=== PATIENT | male | born 1990 | race Caucasian/White ===

== ENCOUNTER 2018-04-09 17:04 | Emergency (ER) | payer OTHER ==
[~2018-04-09] VITALS: Ht 180.3 cm; Wt 59.0 kg
[2018-04-09 17:06] VITALS: BP 119/71
== END 2018-04-09 18:06 | disposition home or self-care (01) ==
LOC: ED 18:00
DX: J01.90 Acute sinusitis, unspecified (principal); J00 Acute nasopharyngitis [common cold]
CPT/HCPCS: 71046; 99284

== ENCOUNTER 2018-12-10 16:19 | Emergency (ER) | payer OTHER ==
[~2018-12-10] VITALS: Ht 180.3 cm; Wt 61.9 kg
--- NOTE | 2018-12-10 16:42 | NUR ---
FIRST CONTACT WITH PT. PT REPORTS SOME LS FLANK/CHEST/ABD PAIN THAT BEGAN LAST NIGHT WHILE HE WAS AT WORK. PT RATES HIS PAIN A 5/10. 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
[2018-12-10] MEDS ORDERED: MAALOX/HYOSCYAMINE/LIDOCAINE 45 ML BTL ONE (16:54)
--- NOTE | 2018-12-10 16:58 | NUR ---
PT MEDICATED WITH GI COCKTAIL. NAD. FAMILY AT BEDSIDE.
[2018-12-10] MEDS ORDERED: MAALOX/HYOSCYAMINE/LIDOCAINE 45 ML BTL PO ONE (17:00)
[2018-12-10 17:08] LABS: BASOPHILS # (AUTO) 0.03 x10^3/uL (0-0.1); BASOPHILS % (AUTO) 0 % (0-1); EOSINOPHILS # (AUTO) 0.07 x10^3/uL (0-0.4); EOSINOPHILS % (AUTO) 1 % (1-7); LYMPHOCYTES # (AUTO) 1.97 x10^3/uL (1-3.4); LYMPHOCYTES % (AUTO) 22 % (22-44); MD NO; MEAN CORPUSCULAR HEMOGLOBIN 31.1 pg (27.5-34.5); MEAN CORPUSCULAR HGB CONC 33.6 g/dL (33.2-36.2); MEAN CORPUSCULAR VOLUME 92.5 fL (81-97); MEAN PLATELET VOLUME 8.1 fL (7.4-10.4); MONOCYTES # (AUTO) 0.62 x10^3/uL (0.2-0.8); MONOCYTES % (AUTO) 7 % (2-9); NEUTROPHILS # (AUTO) 6.35 x10^3/uL (1.8-6.8); NEUTROPHILS % (AUTO) 70 % (42-75); PLATELET COUNT 255 x10^3/uL (130-400); RED BLOOD COUNT 5.06 x10^6/uL (4.38-5.82); RED CELL DISTRIBUTION WIDTH 13.5 % (9.4-14.8)
[2018-12-10 17:15] LABS: ALANINE AMINOTRANSFERASE 60 U/L (12-78); ALBUMIN 3.6 g/dL (3.4-5.0); ANION GAP 9 mmol/L (5-15); CALCIUM 8.8 mg/dL (8.5-10.1); CHLORIDE 110 mmol/L (98-107)
[2018-12-10 17:19] LABS: ALKALINE PHOSPHATASE 97 U/L (45-117); BILIRUBIN,TOTAL 0.9 mg/dL (0.2-1.0); TOTAL PROTEIN 6.7 g/dL (6.4-8.2); TROPONIN I < 0.015 ng/mL (0.000-0.045)
[2018-12-10] MEDS ORDERED: OXYcodone/APAP 5/325MG TABLET PO ONE (17:30)
[2018-12-10] MEDS ORDERED: OXYcodone/APAP 5/325MG TABLET ONE (17:44)
--- NOTE | 2018-12-10 17:48 | NUR ---
PT MEDICATED FOR PAIN. VSS. NAD. PT REPORTS HIS PAIN DID NOT GET BETTER AFTER GI COCKTAIL - MD NOTIFIED. WILL MONITOR CLOSELY.
[2018-12-10 18:05] VITALS: BP 118/72
--- NOTE | 2018-12-10 18:06 | NUR ---
PT REPORTS HIS PAIN IS A 1/10 AND HE FEELS MUCH BETTER. LIV IS PLANNING DC, PT INFORMED, PT VERBALIZED UNDERSTANDING OF POC. DANNA. YESI.
--- NOTE | 2018-12-10 18:21 | NUR ---
Patient/Caregiver given discharge instructions and they have confirmed that they understand the instructions. Patient ambulatory with steady gait. Prescription given to pt, education reviewed, pt verbalized understanding.
== END 2018-12-10 18:24 | disposition home or self-care (01) ==
LOC: ED 18:18
DX: R10.13 Epigastric pain (principal)
CPT/HCPCS: 36415; 71046; 74021; 80053; 84484; 85025; 93005; 99284

== ENCOUNTER 2019-04-01 07:15 | Emergency (ER) | payer OTHER ==
[~2019-04-01] VITALS: Ht 180.3 cm; Wt 61.1 kg
--- NOTE | 2019-04-01 07:25 | NUR ---
PT AMBULATORY WITH STEADY GAIT FROM TRIAGE TO ROOM. CHANGING INTO GOWN NOW.
[2019-04-01] MEDS ORDERED: KETOROLAC 30 MG/1 ML IM ONE (07:30)
--- NOTE | 2019-04-01 07:34 | NUR ---
PT HERE TODAY FOR PAIN IN LEFT EAR AND A HEADACHE. STATES HE WOKE UP WITH THE CHRISTINE AND EAR PAIN STARTED A FEW DAYS AGO. DENIES TRAUMA, DENIES LOC. STATES PAIN IS 10/10 IN EAR AND HEAD RIGHT NOW. STATES HE HAD A "BUMP" ON LEFT EAR LOBE THAT HAS NOW RESOLVED. RESTING ON GURNEY. OFFERED BLANKET, REFUSED. NADN. CONNECTED TO MONITOR. VSS. DENIES NEEDS. CALL [facility]IM[facility] IN REACH.
--- NOTE | 2019-04-01 07:40 | NUR ---
PA AT BEDSIDE ASSESSING PT NOW.
--- NOTE | 2019-04-01 07:40 | NUR ---
PT DENIES HEARING LOSS. STATES HE HAS NOT BEEN SICK RECENTLY. STATES HE USES QTIPS EVERY OTHER DAY.
[2019-04-01 07:41] VITALS: BP 121/76
[2019-04-01] MEDS ORDERED: KETOROLAC 30 MG/1 ML ONE (07:43)
--- NOTE | 2019-04-01 07:45 | NUR ---
PT MEDICATED PER EMAR. RESTING ON GURNEY. VSS. NADN. AWARE OF POC.
== END 2019-04-01 08:02 | disposition home or self-care (01) ==
LOC: ED 07:48
DX: H60.502 Unspecified acute noninfective otitis externa, left ear (principal)
CPT/HCPCS: 99283

== ENCOUNTER 2019-10-30 09:35 | Emergency (ER) | payer OTHER ==
[~2019-10-30] VITALS: Ht 180.3 cm; Wt 62.7 kg
[2019-10-30] MEDS ORDERED: FAMOTIDINE 20 MG/2 ML IV ONE (10:00)
[2019-10-30] MEDS ORDERED: SODIUM CHLORIDE 0.9% 1,000ML IVBOLUS ONE (10:00)
[2019-10-30] MEDS ORDERED: ONDANSETRON 2MG/ML, 2ML IVPush ONE (10:00)
[2019-10-30] MEDS ORDERED: ONDANSETRON 2MG/ML, 2ML ONE (10:02)
[2019-10-30] MEDS ORDERED: MORPHINE SULFATE 4 MG/ML, 1ML ONE ×2 (10:02→11:23)
[2019-10-30] MEDS ORDERED: FAMOTIDINE 20 MG/2 ML ONE (10:03)
--- NOTE | 2019-10-30 10:07 | NUR ---
piv placed from which labs were drawn Medicated per daina for umbilical abd pain at 7/10 vss on nibp/pox Updated on estimated poc
[2019-10-30] MEDS: MORPHINE SULFATE 4 MG/ML, 1ML IVPush PRN ×2 (10:09→11:37)
[2019-10-30 10:27] LABS: BASOPHILS # (AUTO) 0.02 x10^3/uL (0-0.1); BASOPHILS % (AUTO) 0 % (0-1); EOSINOPHILS # (AUTO) 0.07 x10^3/uL (0-0.4); EOSINOPHILS % (AUTO) 1 % (1-7); LYMPHOCYTES # (AUTO) 2.89 x10^3/uL (1-3.4); LYMPHOCYTES % (AUTO) 29 % (22-44); MD NO; MEAN CORPUSCULAR HEMOGLOBIN 31.3 pg (27.5-34.5); MEAN CORPUSCULAR HGB CONC 34.2 g/dL (33.2-36.2); MEAN CORPUSCULAR VOLUME 91.6 fL (81-97); MEAN PLATELET VOLUME 8.2 fL (7.4-10.4); MONOCYTES # (AUTO) 0.55 x10^3/uL (0.2-0.8); MONOCYTES % (AUTO) 6 % (2-9); NEUTROPHILS # (AUTO) 6.32 x10^3/uL (1.8-6.8); NEUTROPHILS % (AUTO) 64 % (42-75); PLATELET COUNT 273 x10^3/uL (130-400); RED BLOOD COUNT 5.61 x10^6/uL (4.38-5.82)
[2019-10-30 10:35] LABS: ALANINE AMINOTRANSFERASE 24 U/L (12-78); ANION GAP 11 mmol/L (5-15); CALCIUM 8.8 mg/dL (8.5-10.1); CHLORIDE 108 mmol/L (98-107)
[2019-10-30 10:38] LABS: MICROSCOPIC NOT IND
[2019-10-30 10:38] LABS: ALKALINE PHOSPHATASE 69 U/L (45-117); BILIRUBIN,TOTAL 0.4 mg/dL (0.2-1.0); CREATININE 1.03 mg/dL (0.7-1.3); TOTAL PROTEIN 7.3 g/dL (6.4-8.2)
--- NOTE | 2019-10-30 10:46 | NUR ---
PAIN ONLY SLIGHTLY IMPROVED TO 11/03-TO RE-DOSE SHORTLY CT CALLED TO EXPEDITE EXAM
--- NOTE | 2019-10-30 11:05 | NUR ---
TO CT SCAN
[2019-10-30] MEDS ORDERED: OMNIPAQUE 350 MG/ML, 100ML BOTTLE ONE (11:26)
[2019-10-30] MEDS ORDERED: METOCLOPRAMIDE 5 MG/ML, 2ML ONE (11:35)
[2019-10-30 11:40] VITALS: BP 107/66
--- NOTE | 2019-10-30 11:41 | NUR ---
medicated per emar for continued abd pain and vomiting x 1 updated on estimated poc (awaiting ct results) with update vss on nibp/pox
[2019-10-30] MEDS ORDERED: METOCLOPRAMIDE 5 MG/ML, 2ML IVPush ONE (12:00)
== END 2019-10-30 13:02 | disposition home or self-care (01) ==
LOC: ED 09:59
DX: R10.84 Generalized abdominal pain (principal); R19.7 Diarrhea, unspecified; R11.0 Nausea; K59.00 Constipation, unspecified
CPT/HCPCS: 36415; 74177; 80053; 81003; 83690; 85025; 96361; 96374; 96375; 96376; 99285; J2270; J2405; J2765; J3490; J7030; Q9967

== ENCOUNTER 2019-12-15 01:17 | Emergency (ER) | payer SELFPAY ==
[~2019-12-15] VITALS: Ht 180.3 cm; Wt 62.5 kg
--- NOTE | 2019-12-15 01:57 | NUR ---
TASK RN: FIRST CONTACT WITH PT, PT SITTING UP IN [facility]. APPEARS ANXIOUS. PT REPORTS R SIDED CHEST PAIN "PRESSURE" X THIS AM THAT "FEELS LIKE MY OLD ASTHMA". PT REPORTS "MAYBE IT IS MY ASTHMA THAT WAS JUST TRIGGERED BY THE SMOKE". RESPIRATIONS EVEN/UNLABORED, SPO2 >90% ON RA. RR WNL. LUNGS CLEAR BILATERALLY; CHEST PAIN REPRODUCABLE TO PALPATION. BP/SPO2/ECG MONITORING IN PLACE. SINUS DOMINIC ON MONITOR. REPORT TO PRIMARY RNRENETTA.
[2019-12-15] MEDS ORDERED: IBUPROFEN 800 MG TABLET ONE (02:22)
[2019-12-15 02:25] LABS: BASOPHILS # (AUTO) 0.05 x10^3/uL (0-0.1); BASOPHILS % (AUTO) 1 % (0-1); EOSINOPHILS # (AUTO) 0.09 x10^3/uL (0-0.4); EOSINOPHILS % (AUTO) 1 % (1-7); LYMPHOCYTES # (AUTO) 3.92 x10^3/uL (1-3.4); LYMPHOCYTES % (AUTO) 35 % (22-44); MD NO; MEAN CORPUSCULAR HEMOGLOBIN 30.5 pg (27.5-34.5); MEAN CORPUSCULAR HGB CONC 33.5 g/dL (33.2-36.2); MEAN CORPUSCULAR VOLUME 91.1 fL (81-97); MEAN PLATELET VOLUME 8.2 fL (7.4-10.4); MONOCYTES # (AUTO) 0.68 x10^3/uL (0.2-0.8); MONOCYTES % (AUTO) 6 % (2-9); NEUTROPHILS # (AUTO) 6.36 x10^3/uL (1.8-6.8); NEUTROPHILS % (AUTO) 57 % (42-75); PLATELET COUNT 275 x10^3/uL (130-400); RED BLOOD COUNT 5.53 x10^6/uL (4.38-5.82); RED CELL DISTRIBUTION WIDTH 13.9 % (9.4-14.8)
[2019-12-15] MEDS ORDERED: IBUPROFEN 800 MG TABLET PO ONE (02:30)
[2019-12-15 02:37] LABS: ALANINE AMINOTRANSFERASE 25 U/L (12-78); ALBUMIN 4.3 g/dL (3.4-5.0); ANION GAP 9 mmol/L (5-15); CALCIUM 8.9 mg/dL (8.5-10.1); CHLORIDE 111 mmol/L (98-107); CREATININE 0.86 mg/dL (0.7-1.3)
[2019-12-15 02:41] LABS: ALKALINE PHOSPHATASE 77 U/L (45-117); BILIRUBIN,TOTAL 0.8 mg/dL (0.2-1.0); TOTAL PROTEIN 7.4 g/dL (6.4-8.2); TROPONIN I < 0.015 ng/mL (0.000-0.045)
[2019-12-15 03:41] VITALS: BP 102/63
== END 2019-12-15 04:03 | disposition home or self-care (01) ==
LOC: ED 01:47
DX: R07.89 Other chest pain (principal); R00.0 Tachycardia, unspecified; I51.7 Cardiomegaly; J45.909 Unspecified asthma, uncomplicated
CPT/HCPCS: 36415; 71045; 80053; 84484; 85025; 93005; 99285

== ENCOUNTER 2020-06-13 12:37 | Emergency (ER) | payer OTHER ==
[~2020-06-13] VITALS: Ht 180.3 cm; Wt 64.2 kg
--- NOTE | 2020-06-13 13:55 | NUR ---
[facility] certified concierge note: Pt to room from lobby.
[2020-06-13 14:43] LABS: ALANINE AMINOTRANSFERASE 24 U/L (12-78); ALBUMIN 4.1 g/dL (3.4-5.0); ANION GAP 3 mmol/L (5-15); CALCIUM 9.2 mg/dL (8.5-10.1); CHLORIDE 109 mmol/L (98-107)
[2020-06-13 14:44] LABS: BASOPHILS % (AUTO) 1 % (0-1); EOSINOPHILS % (AUTO) 3 % (1-7); LYMPHOCYTES % (AUTO) 20 % (22-44); MEAN CORPUSCULAR HEMOGLOBIN 30.8 pg (27.5-34.5); MEAN PLATELET VOLUME 8.4 fL (7.4-10.4); MONOCYTES % (AUTO) 6 % (2-9); NEUTROPHILS % (AUTO) 71 % (42-75); PLATELET COUNT 268 x10^3/uL (130-400); RED BLOOD COUNT 5.78 x10^6/uL (4.38-5.82); RED CELL DISTRIBUTION WIDTH 14.6 % (9.4-14.8)
[2020-06-13 14:46] LABS: ALKALINE PHOSPHATASE 85 U/L (45-117); BILIRUBIN,TOTAL 0.4 mg/dL (0.2-1.0); TOTAL PROTEIN 7.7 g/dL (6.4-8.2)
[2020-06-13 14:51] LABS: MD NO
[2020-06-13 15:07] LABS: MICROSCOPIC NOT IND
--- NOTE | 2020-06-13 15:54 | NUR ---
MEDICATED PER EMAR
[2020-06-13] MEDS ORDERED: KETOROLAC 60 MG/2 ML IM ONE (16:00)
--- NOTE | 2020-06-13 16:16 | NUR ---
CT CALLED TO EXPEDITE IMAGING
--- NOTE | 2020-06-13 16:30 | NUR ---
TO CT SCAN WITH ASSESSMENT PAIN IMPROVED TO 3/10
[2020-06-13 17:55] VITALS: BP 139/82
== END 2020-06-13 17:57 | disposition home or self-care (01) ==
LOC: ED 15:31
DX: A09 Infectious gastroenteritis and colitis, unspecified (principal); R10.9 Unspecified abdominal pain
CPT/HCPCS: 36415; 74021; 74176; 80053; 81003; 83690; 85025; 96372; 99285; J1885